=== PATIENT | male | born 1950 | race Caucasian/White ===

== ENCOUNTER 2020-05-21 13:45 | Inpatient (IN) ==
[2020-05-21 14:51] LABS: Hemoglobin 16.5 g/dL (12.9-16.9); Mean Corpuscular HGB Conc 34.4 g/dL (31.6-35.5); Mean Corpuscular Hemoglobin 30.6 pg (28.0-33.3); Mean Corpuscular Volume 89.1 fL (83.0-100.0); Mean Platelet Volume 10.7 fL (9.4-12.4); Platelet Count 185 K/mcL (140-400); Red Blood Count 5.39 M/mcL (4.19-5.50); Red Cell Distribution Width 12.8 % (11.5-14.5); White Blood Count 6.9 K/mcL (4.3-11.1)
[2020-05-21 15:05] LABS: BUN/Creatinine Ratio 15 (6-26); Blood Urea Nitrogen 13 mg/dL (8-23); Calcium 9.7 mg/dL (8.6-10.3); Carbon Dioxide 24 mEq/L (23-29); Chloride 100 mEq/L (98-107); Glucose 277 mg/dL (70-105); Osmolality,Calculated 290 (280-300); Sodium 135 mEq/L (136-145); eGFR For African Americans > 60 (> 60); eGFR For Non-African Americans > 60 (> 60)
[2020-05-21 15:09] LABS: Troponin I 0.52 ng/mL (< 0.04)
[2020-05-21] MEDS ORDERED: Naloxone 0.4 MG/ML INJ IVP PRN (15:31)
[2020-05-21] MEDS ORDERED: Ondansetron 4 MG/2 ML VIAL IVP PRN (15:31)
[2020-05-21] MEDS ORDERED: Perflutren Lipid Microsphere 1.3 ML in 0.9 % Sodium Chloride 8.7 ML IVP PRN (15:33)
[2020-05-21] MEDS ORDERED: *HR* Dextrose 50 % in Water (Vial) 50 ML VIAL IVP PRN (16:02)
[2020-05-21] MEDS ORDERED: *HR* Heparin 5,000 UNIT/ML VIAL IVP PRN ×2 (16:02)
[2020-05-21] MEDS ORDERED: *HR* Heparin 5,000 UNIT/ML VIAL IVP ONE (16:02)
[2020-05-21] MEDS ORDERED: Dextrose Gel 15 GM/37.5 ML TUBE PO PRN ×2 (16:02)
[2020-05-21] MEDS ORDERED: D5% in Water 1,000 ML IVC PRN (16:02)
[2020-05-21] MEDS ORDERED: Heparin 25,000UNIT/250ML 1/2NS 25,000 UNIT/250 ML IV.SOLN IVC SCH ×2 (16:15→16:30)
[2020-05-21] MEDS ORDERED: Aspirin Enteric Coated 81 MG Tablet PO ONE (16:16)
[2020-05-21 16:52] LABS: INR 1.2; Prothrombin Time 14.1 Seconds (9.4-12.1)
[2020-05-21 17:00] LABS: Heparin anti-factor XA UFH 1.15 IU/mL (0.30-0.70)
[2020-05-21] MEDS ORDERED: Fluticasone Propionate Nasal 50 MCG/SPRAY BOTTLE NS PRN (17:19)
[2020-05-21 18:24] LABS: Activated Partial Thrombo Time 35.8 Seconds (26.0-36.0)
[2020-05-21] MEDS: Aspirin Enteric Coated 81 MG Tablet PO SCH (18:25)
[2020-05-21] MEDS: Insulin LISPRO 300 UNITS/3 ML VIAL SQ SCH ×2 (18:37→20:43)
[2020-05-21] MEDS: Sacubitril/Valsartan 24/26 MG 1 TABLET PO SCH (21:22)
[2020-05-22 02:56] LABS: Basophils # 0.1 K/mcL (0.0-0.2); Basophils % 0.9 %; Eosinophils # 0.2 K/mcL (0.0-0.6); Eosinophils % 3.2 %; Hematocrit 45.7 % (37.5-50.1); Hemoglobin 15.4 g/dL (12.9-16.9); Immature Granulocytes % 0.6 % (0-4); Lymphocytes # 2.2 K/mcL (0.6-4.6); Lymphocytes % 32.6 %; Mean Corpuscular HGB Conc 33.7 g/dL (31.6-35.5); Mean Corpuscular Hemoglobin 29.6 pg (28.0-33.3); Mean Corpuscular Volume 87.7 fL (83.0-100.0); Mean Platelet Volume 10.7 fL (9.4-12.4); Monocytes # 0.9 K/mcL (0.0-1.3); Monocytes % 14.2 %; Neutrophils # 3.2 K/mcL (1.6-8.9); Platelet Count 186 K/mcL (140-400); Red Blood Count 5.21 M/mcL (4.19-5.50); Red Cell Distribution Width 12.8 % (11.5-14.5); Segmented Neutrophils % 48.5 %; White Blood Count 6.6 K/mcL (4.3-11.1)
[2020-05-22 03:14] LABS: BUN/Creatinine Ratio 14 (6-26); Blood Urea Nitrogen 11 mg/dL (8-23); Calcium 9.4 mg/dL (8.6-10.3); Carbon Dioxide 25 mEq/L (23-29); Chloride 104 mEq/L (98-107); Glucose 150 mg/dL (70-105); Magnesium 1.7 mg/dL (1.6-2.6); Osmolality,Calculated 286 (280-300); Potassium 3.6 mEq/L (3.5-5.1); Sodium 137 mEq/L (136-145); eGFR For African Americans > 60 (> 60); eGFR For Non-African Americans > 60 (> 60)
[2020-05-22] MEDS: PARoxetine 20 MG TABLET PO SCH (08:09)
[2020-05-22] MEDS: Insulin LISPRO 300 UNITS/3 ML VIAL SQ SCH ×4 (08:10→19:45)
[2020-05-22] MEDS: Aspirin Enteric Coated 81 MG Tablet PO SCH (08:10)
[2020-05-22] MEDS ORDERED: Metoprolol XL (24 HR) Succ 25 MG TAB.ER.24H PO SCH (09:00)
[2020-05-22] MEDS: Sacubitril/Valsartan 24/26 MG 1 TABLET PO SCH ×2 (11:48→21:00)
[2020-05-22] MEDS: Apixaban 5 MG TABLET PO SCH ×2 (13:25→21:00)
[2020-05-22] MEDS ORDERED: carvediloL 6.25 MG TABLET PO SCH (17:00)
[2020-05-23 03:10] LABS: Hematocrit 46.7 % (37.5-50.1); Hemoglobin 15.9 g/dL (12.9-16.9); Mean Corpuscular Hemoglobin 30.2 pg (28.0-33.3); Mean Corpuscular Volume 88.8 fL (83.0-100.0); Mean Platelet Volume 10.3 fL (9.4-12.4); Platelet Count 183 K/mcL (140-400); Red Blood Count 5.26 M/mcL (4.19-5.50); Red Cell Distribution Width 12.6 % (11.5-14.5); White Blood Count 6.1 K/mcL (4.3-11.1)
[2020-05-23 03:29] LABS: BUN/Creatinine Ratio 15 (6-26); Blood Urea Nitrogen 12 mg/dL (8-23); Calcium 9.4 mg/dL (8.6-10.3); Carbon Dioxide 22 mEq/L (23-29); Chloride 103 mEq/L (98-107); Glucose 142 mg/dL (70-105); Magnesium 1.9 mg/dL (1.6-2.6); Osmolality,Calculated 284 (280-300); Sodium 136 mEq/L (136-145); eGFR For African Americans > 60 (> 60); eGFR For Non-African Americans > 60 (> 60)
[2020-05-23 07:23] VITALS: BP 114/75
[2020-05-23] MEDS: Insulin LISPRO 300 UNITS/3 ML VIAL SQ SCH (07:57)
[2020-05-23] MEDS: Apixaban 5 MG TABLET PO SCH (07:57)
[2020-05-23] MEDS: PARoxetine 20 MG TABLET PO SCH (07:57)
[2020-05-23] MEDS: Aspirin Enteric Coated 81 MG Tablet PO SCH (07:57)
[2020-05-23] MEDS ORDERED: carvediloL 6.25 MG TABLET PO SCH (08:00)
[2020-05-23] MEDS: Sacubitril/Valsartan 24/26 MG 1 TABLET PO SCH (10:40)
== END 2020-05-23 11:37 | disposition home or self-care (01) | DRG 309 ==
LOC: EMEROOARM 13:45 → 2ANU 13:45 → SUATTDRO 15:28 → 2ANU 17:10
PROVIDERS: ADMIT Internal Medicine; ATTEND Internal Medicine

== ENCOUNTER 2021-01-16 15:10 | Inpatient (IN) ==
[2021-01-16 16:00] LABS: Basophils # 0.1 K/mcL (0.0-0.2); Eosinophils # 0.3 K/mcL (0.0-0.6); Eosinophils % 3.4 %; Hematocrit 50.8 % (37.5-50.1); Immature Granulocytes % 0.4 % (0-4); Lymphocytes % 25.5 %; Mean Corpuscular HGB Conc 33.5 g/dL (31.6-35.5); Mean Corpuscular Hemoglobin 29.5 pg (28.0-33.3); Mean Corpuscular Volume 88.2 fL (83.0-100.0); Mean Platelet Volume 10.3 fL (9.4-12.4); Monocytes # 1.1 K/mcL (0.0-1.3); Monocytes % 13.3 %; Neutrophils # 4.5 K/mcL (1.6-8.9); Nucleated Red Blood Cells 0.4 /100 WBC (0); Platelet Count 219 K/mcL (140-400); Red Blood Count 5.76 M/mcL (4.19-5.50); Red Cell Distribution Width 12.9 % (11.5-14.5); Segmented Neutrophils % 56.4 %
[2021-01-16 16:04] LABS: Bilirubin,Urine Negative (Negative); Blood,Urine Negative (Negative); Clarity,Urine Clear (Clear); Color,Urine Colorless (Yellow); Glucose,Urine (UA) >=1000 mg/dL (Normal); Ketones,Urine Negative (Negative); Leukocyte Esterase,Urine Negative (Negative); Nitrite,Urine Negative (Negative); Protein,Urine Negative (Neg-Trace); RBC,Urine 0-3 per hpf (0-3); Specific Gravity,Urine 1.023 (1.010-1.025); Urobilinogen,Urine Normal (Normal); WBC,Urine 0-3 per hpf (0-3)
[2021-01-16] MEDS ORDERED: cefTRIAXone 1,000 MG in Water for inj. (sterile) 10 ML IVP ONE (16:06)
[2021-01-16] MEDS ORDERED: Azithromycin 500 MG in 0.9 % Sodium Chloride 250 ML IVPB ONE (16:06)
[2021-01-16 16:08] LABS: INR 1.4; Prothrombin Time 16.2 Seconds (9.4-12.1)
[2021-01-16] MEDS ORDERED: Furosemide 20 MG/2 ML VIAL IVP ONE (16:09)
[2021-01-16 16:11] LABS: Activated Partial Thrombo Time 32.4 Seconds (26.0-36.0)
[2021-01-16 16:29] LABS: BUN/Creatinine Ratio 17 (6-26); Blood Urea Nitrogen 15 mg/dL (8-23); Calcium 9.6 mg/dL (8.6-10.3); Carbon Dioxide 22 mEq/L (23-29); Chloride 103 mEq/L (98-107); Glucose 175 mg/dL (70-105); Osmolality,Calculated 289 (280-300); Potassium 3.7 mEq/L (3.5-5.1); Sodium 137 mEq/L (136-145); eGFR For African Americans > 60 (> 60); eGFR For Non-African Americans > 60 (> 60)
[2021-01-16 16:30] LABS: Troponin I < 0.03 ng/mL (< 0.04)
[2021-01-16] MEDS ORDERED: Aspirin 325 MG TABLET PO ONE (16:58)
[2021-01-16] MEDS ORDERED: Acetaminophen 325 MG TABLET PO PRN (17:23)
[2021-01-16] MEDS ORDERED: Melatonin 3 MG TABLET PO PRN (17:23)
[2021-01-16] MEDS ORDERED: Mag Hydrox/Al Hydrox/Simeth 30 ML UDC PO PRN (17:23)
[2021-01-16] MEDS ORDERED: Ondansetron ODT 4 MG TAB.RAPDIS SL PRN (17:23)
[2021-01-16] MEDS ORDERED: Naloxone 0.4 MG/ML INJ IVP PRN (17:23)
[2021-01-16] MEDS ORDERED: Nitroglycerin 0.4 MG TAB.SUBL SL PRN (17:28)
[2021-01-16] MEDS ORDERED: Perflutren Lipid Microsphere 1.3 ML in 0.9 % Sodium Chloride 8.7 ML IVP PRN (17:28)
[2021-01-16] MEDS ORDERED: Sacubitril/Valsartan 24/26 MG 1 TABLET PO SCH (21:00)
[2021-01-16] MEDS ORDERED: Aspirin 81 MG TAB.CHEW PO ONE (21:21)
[2021-01-16] MEDS: Apixaban 5 MG TABLET PO SCH (21:40)
[2021-01-17] MEDS: carvediloL 25 MG TABLET PO SCH ×3 (01:42→17:05)
[2021-01-17 05:42] LABS: Hematocrit 50.3 % (37.5-50.1); Hemoglobin 17.2 g/dL (12.9-16.9); Mean Corpuscular HGB Conc 34.2 g/dL (31.6-35.5); Mean Corpuscular Volume 87.8 fL (83.0-100.0); Mean Platelet Volume 10.2 fL (9.4-12.4); Platelet Count 212 K/mcL (140-400); Red Blood Count 5.73 M/mcL (4.19-5.50); Red Cell Distribution Width 12.9 % (11.5-14.5); White Blood Count 8.4 K/mcL (4.3-11.1)
[2021-01-17 06:01] LABS: BUN/Creatinine Ratio 20 (6-26); Blood Urea Nitrogen 18 mg/dL (8-23); Calcium 9.6 mg/dL (8.6-10.3); Carbon Dioxide 25 mEq/L (23-29); Chloride 106 mEq/L (98-107); Glucose 147 mg/dL (70-105); Osmolality,Calculated 295 (280-300); Potassium 3.7 mEq/L (3.5-5.1); Sodium 140 mEq/L (136-145); eGFR For African Americans > 60 (> 60); eGFR For Non-African Americans > 60 (> 60)
[2021-01-17] MEDS: PARoxetine 20 MG TABLET PO SCH (08:34)
[2021-01-17] MEDS: Apixaban 5 MG TABLET PO SCH ×2 (08:34→21:39)
[2021-01-17] MEDS: Cholecalciferol (D-3) 1,000 UNIT (25MCG) TABLET PO SCH (08:34)
[2021-01-17] MEDS: Aspirin Enteric Coated 81 MG Tablet PO SCH (08:34)
[2021-01-17] MEDS ORDERED: Furosemide 40 MG/4 ML VIAL IVP SCH (09:00)
[2021-01-17] MEDS: Isosorbide MONOnitrate (24 HR) 30 MG TAB.ER.24H PO SCH (12:08)
[2021-01-17] MEDS ORDERED: *HR* Dextrose 50 % in Water (Vial) 50 ML VIAL IVP PRN (14:26)
[2021-01-17] MEDS ORDERED: D5% in Water 1,000 ML IVC PRN (14:26)
[2021-01-17] MEDS ORDERED: Dextrose Gel 15 GM/37.5 ML TUBE PO PRN ×2 (14:26)
[2021-01-17] MEDS: Insulin LISPRO 300 UNITS/3 ML VIAL SUBQ SCH (17:06)
[2021-01-17] MEDS ORDERED: Insulin LISPRO 300 UNITS/3 ML VIAL SUBQ SCH (21:00)
[2021-01-17] MEDS: Furosemide 40 MG/4 ML VIAL IVP SCH (23:18)
[2021-01-18] MEDS: Aspirin Enteric Coated 81 MG Tablet PO SCH (08:40)
[2021-01-18] MEDS: PARoxetine 20 MG TABLET PO SCH (08:41)
[2021-01-18] MEDS: carvediloL 25 MG TABLET PO SCH (08:41)
[2021-01-18] MEDS: Apixaban 5 MG TABLET PO SCH (08:41)
[2021-01-18] MEDS: Isosorbide MONOnitrate (24 HR) 30 MG TAB.ER.24H PO SCH (08:41)
[2021-01-18] MEDS: Cholecalciferol (D-3) 1,000 UNIT (25MCG) TABLET PO SCH (08:41)
[2021-01-18] MEDS: Insulin LISPRO 300 UNITS/3 ML VIAL SUBQ SCH ×2 (08:42→11:53)
[2021-01-18] MEDS: Furosemide 40 MG/4 ML VIAL IVP SCH (10:19)
[2021-01-18 10:48] VITALS: BP 122/77
[2021-01-19] MEDS ORDERED: Spironolactone 12.5 MG TABLET PO SCH (09:00)
== END 2021-01-18 12:15 | disposition home or self-care (01) | DRG 291 ==
LOC: 3BNU 15:10 → EMEROOARM 15:10 → SUATTDRO 17:21 → 3BNU 17:57
PROVIDERS: ADMIT Family Medicine; ATTEND Family Medicine